=== PATIENT | female | born 1980 | race Caucasian/White ===

== ENCOUNTER → 2017-12-08 | Emergency (ER) | payer OTHER ==
[~2017-12-08] VITALS: Ht 162.6 cm; Wt 68.0 kg
== END | disposition home or self-care (01) ==
LOC: ER 12:40
DX: R10.31 Right lower quadrant pain (principal)

== ENCOUNTER 2018-04-27 11:24 | Emergency (ER) | payer OTHER ==
[~2018-04-27] VITALS: Ht 162.6 cm; Wt 64.9 kg
== END 2018-04-27 15:39 | disposition home or self-care (01) ==
LOC: ER 11:24
DX: N39.0 Urinary tract infection, site not specified (principal)